=== PATIENT | female | born 1965 | race Caucasian/White ===

== ENCOUNTER 2020-05-30 16:14 | Emergency (ER) | payer BC, OTHER ==
--- NOTE | 2020-05-30 20:21 | ER ---
Nurse's Notes [facility] Name: Suzanne Horner Age: 54 yrs Sex: Female : 1965 Arrival Date: 05/30/2020 Time: 16:14 Bed 25 Private MD: Diagnosis: Palpitations;Headache Presentation: 05/30 16:32 Chief complaint: Patient states: "I've had a horrible headache and dizzy. I checked my ss BP and it was high. I was diagnosed and they put my on medicine that I started taking Saturday.". Coronavirus screen: Client denies travel out of the [place] in the last 14 days. Ebola Screen: Patient denies exposure to infectious person. Patient denies travel to an Ebola-affected area in the 21 days before illness onset. Initial Sepsis Screen: Does the patient meet any 2 criteria? No. Patient's initial sepsis screen is negative. Does the patient have a suspected source of infection? No. Patient's initial sepsis screen is negative. Risk Assessment: Do you want to hurt yourself or someone else? Patient reports no desire to harm self or others. Onset of symptoms is unknown. 16:32 Method Of Arrival: Ambulatory ss 16:32 Acuity: MEY 3 ss Historical: - Allergies: 16:36 PENICILLINS; ss - PMHx: 16:36 Hypertension; ss - Immunization history:: Adult Immunizations up to date. - Social history:: Smoking status: Patient reports the use of cigarette tobacco products, "E cig". Screenin/16 00:26 Abuse screen: Denies threats or abuse. Nutritional screening: No deficits noted. ll2 Tuberculosis screening: No symptoms or risk factors identified. Fall Risk None identified. Assessment: 05/30 22:00 General: Appears in no apparent distress. Behavior is calm, cooperative, appropriate ll2 for age. Pain: Denies pain. Neuro: Level of Consciousness is awake, alert, obeys commands, Oriented to person, place, time, situation. Cardiovascular: Patient's skin is warm and dry. Respiratory: Airway is patent Respiratory effort is even, unlabored, Respiratory pattern is regular, symmetrical. Derm: Skin is intact, is healthy with good turgor, Skin is pink, warm \\T\\ dry. Musculoskeletal: Circulation, motion, and sensation intact. Range of motion: intact in all extremities. 23:00 Reassessment: Patient and/or family updated on plan of care and expected duration. Pain ll2 level reassessed. Patient is alert, oriented x 3, equal unlabored respirations, skin warm/dry/pink. 05/31 00:00 Reassessment: Patient and/or family updated on plan of care and expected duration. Pain ll2 level reassessed. Patient is alert, oriented x 3, equal unlabored respirations, skin warm/dry/pink. Vital Signs: 05/30 16:32 BP 169 / 113; Pulse 95; Resp 15; Temp 98.1(TE); Pulse Ox 98% on R/A; Weight 77.11 kg; ss Height 5 ft. 7 in. (170.18 cm); Pain 4/10; 23:40 BP 168 / 105; Pulse 75; sg 05/31 00:00 BP 144 / 91; Pulse 72; Resp 16; Pulse Ox 98% on R/A; sg 05/30 16:32 Body Mass Index 26.63 (77.11 kg, 170.18 cm) ED Course: 05/30 16:14 Patient arrived in ED. rg4 16:36 Triage completed. ss 16:36 Arm band placed on right wrist. ss 21:33 Jackson Rosado MD is Attending Physician. kdr 21:45 Arelis Zepeda, SWATI is Primary Nurse. ll2 21:56 XRAY Chest (1 view) In Process Unspecified. EDMS 05/31 00:30 Patient has correct armband on for positive identification. Bed in low position. Call ll2 light in reach. Side rails up X 1. city plant supervisor on. Pulse ox on. NIBP on. 00:30 No provider procedures requiring assistance completed. IV discontinued, intact, ll2 bleeding controlled, No redness/swelling at site. Pressure dressing applied. Administered Medications: 05/30 22:00 Drug: Tylenol 1000 mg Route: PO; ll2 23:00 Follow up: Response: No adverse reaction ll2 23:48 Drug: Lopressor 5 mg Route: IVP; Site: left antecubital; 05/31 00:48 Follow up: Response: No adverse reaction ll2 Outcome: 05/30 20:20 Patient left the ED. em 05/31 00:33 Discharge ordered by . kdr 01:10 Patient left the ED. sg 01:10 Discharged to home ambulatory. ll2 01:10 Condition: stable 01:10 Discharge instructions given to patient, Instructed on discharge instructions, follow up and referral plans. medication usage, Demonstrated understanding of instructions, follow-up care, medications, Prescriptions given X 1. Signatures: Dispatcher [employer] Bridger Lange, RN Jackson De La Torre MD MD kdr Munoz, Edgar, RN RN em Smirch, Shelby, RN RN ss Garcia, Rubi [facility] Arelis Zepeda RN RN ll2
[2020-05-30 20:53] VITALS: TEMP 97.8
[2020-05-30] MEDS ORDERED: ACETAMINOPHEN 500 MG TAB ONE (22:30)
[2020-05-30 22:40] LABS: Absolute Lymphocytes (CBC) 1.6 K/uL (0.7-4.9); Basophils % 0.4 % (0-1.3); Hematocrit 38.2 % (36.0-45.0); Lymphocytes % 29.2 % (15.3-44.8); MPV 7.6 fL (7.6-11.3); RBC Red Blood Cell Count 3.88 M/uL (3.86-4.86)
[2020-05-30 22:41] LABS: Protime INR 0.96
[2020-05-30 23:11] LABS: ALT/SGPT 18 U/L (12-78); AST/SGOT 15 U/L (15-37); Albumin 3.7 g/dL (3.4-5.0); Alkaline Phosphatase 77 U/L (45-117); BUN Blood Urea Nitrogen 14 mg/dL (7-18); Bicarbonate 28 mmol/L (21-32); Bilirubin Direct 0.1 mg/dL (0-0.2); Bilirubin Total 0.4 mg/dL (0.2-1.0); Glucose Level 132 mg/dL (74-106); Magnesium 1.8 mg/dL (1.8-2.4); NT PRO-BNP 92 pg/mL (<125); Potassium 3.9 mmol/L (3.5-5.1); Protein, Total 7.1 g/dL (6.4-8.2); Sodium Level 141 mmol/L (136-145); T3 Free 3.94 pg/mL (2.18-3.98); Troponin (Emerg Dept Use Only) < 0.02 ng/mL (0.0-0.045)
[2020-05-31] MEDS ORDERED: METOPROLOL TARTRATE 5 MG/5 ML INJ IV ONE
--- NOTE | 2020-05-31 00:34 | EDPHYS ---
Physician Documentation [facility] Name: Suzanne Horner Age: 54 yrs Sex: Female : 1965 Arrival Date: 05/30/2020 Time: 16:14 Bed 25 Private MD: ED Physician Jackson Rosado HPI: 05/30 21:45 This 54 yrs old Female presents to ER via Ambulatory with complaints of kdr Headache and palpitations. 21:45 The patient has elevated blood pressure and discovered this at home. Onset: The kdr symptoms/episode began/occurred The patient c/o headache and palpitations. Has been intermittent and ongoing for about five days. Modifying factors: The symptoms are aggravated by Nothing, The symptoms are alleviated by Nothing. Associated signs and symptoms: Pertinent positives: headache, Palpitations. Severity of symptoms: At its worst the blood pressure was moderate, in the emergency department the blood pressure is unchanged. The patient has not experienced similar symptoms in the past. The patient has been recently seen by a physician: the patient's primary care provider, Dr. Antonio. Historical: - Allergies: 16:36 PENICILLINS; ss - PMHx: 16:36 Hypertension; ss - Immunization history:: Adult Immunizations up to date. - Social history:: Smoking status: Patient reports the use of cigarette tobacco products, "E cig". ROS: 21:45 Constitutional: Negative for fever, chills, and weight loss, Eyes: Negative for injury, kdr pain, redness, and discharge, Neck: Negative for injury, pain, and swelling, Respiratory: Negative for shortness of breath, cough, wheezing, and pleuritic chest pain, Abdomen/GI: Negative for abdominal pain, nausea, vomiting, diarrhea, and constipation, Back: Negative for injury and pain, : Negative for injury, bleeding, discharge, and swelling, MS/Extremity: Negative for injury and deformity, Skin: Negative for injury, rash, and discoloration, Psych: Negative for depression, anxiety, suicide ideation, homicidal ideation, and hallucinations, Allergy/Immunology: Negative for hives, rash, and allergies, Endocrine: Negative for neck swelling, polydipsia, polyuria, polyphagia, and marked weight changes, Hematologic/Lymphatic: Negative for swollen nodes, abnormal bleeding, and unusual bruising. 21:45 Cardiovascular: Positive for palpitations, Negative for chest pain, edema, orthopnea. 21:45 Neuro: Positive for headache, Negative for altered mental status, dizziness, hearing loss, loss of consciousness, speech changes, syncope, tinnitus, visual changes, weakness. Exam: 21:45 Constitutional: This is a well developed, well nourished patient who is awake, alert, kdr and in no acute distress. Head/Face: Normocephalic, atraumatic. Eyes: Pupils equal round and reactive to light, extra-ocular motions intact. Lids and lashes normal. Conjunctiva and sclera are non-icteric and not injected. Cornea within normal limits. Periorbital areas with no swelling, redness, or edema. Mild exopthalmosis Neck: Trachea midline, no thyromegaly or masses palpated, and no cervical lymphadenopathy. Supple, full range of motion without nuchal rigidity, or vertebral point tenderness. No Meningismus. Chest/axilla: Normal chest wall appearance and motion. Nontender with no deformity. No lesions are appreciated. Respiratory: Lungs have equal breath sounds bilaterally, clear to auscultation and percussion. No rales, rhonchi or wheezes noted. No increased work of breathing, no retractions or nasal flaring. Abdomen/GI: Soft, non-tender, with normal bowel sounds. No distension or tympany. No guarding or rebound. No evidence of tenderness throughout. Back: No spinal tenderness. No costovertebral tenderness. Full range of motion. Skin: Warm, dry with normal turgor. Normal color with no rashes, no lesions, and no evidence of cellulitis. MS/ Extremity: Pulses equal, no cyanosis. Neurovascular intact. Full, normal range of motion. Neuro: Awake and alert, GCS 15, oriented to person, place, time, and situation. Cranial nerves II-XII grossly intact. Motor strength 5/5 in all extremities. Sensory grossly intact. Cerebellar exam normal. Normal gait. Psych: Awake, alert, with orientation to person, place and time. Behavior, mood, and affect are within normal limits. 21:45 Cardiovascular: Rate: tachycardic, Rhythm: regular, Pulses: no pulse deficits are kdr appreciated. 05/31 06:30 ECG was reviewed by the Attending Physician. kdr Vital Signs: 05/30 16:32 BP 169 / 113; Pulse 95; Resp 15; Temp 98.1(TE); Pulse Ox 98% on R/A; Weight 77.11 kg; ss Height 5 ft. 7 in. (170.18 cm); Pain 4/10; 23:40 BP 168 / 105; Pulse 75; sg 05/31 00:00 BP 144 / 91; Pulse 72; Resp 16; Pulse Ox 98% on R/A; sg 05/30 16:32 Body Mass Index 26.63 (77.11 kg, 170.18 cm) ss MDM: 05/30 21:45 Data reviewed: vital signs, nurses notes, lab test result(s), EKG, radiologic studies. kdr Counseling: I had a detailed discussion with the patient and/or guardian regarding: the historical points, exam findings, and any diagnostic results supporting the discharge/admit diagnosis, lab results, radiology results. 21:51 Differential diagnosis: hypertensive crisis, Malignant HTN, intracerebral hemorrhage. kdr 05/31 00:33 Patient medically screened. kdr 00:37 Special discussion: Based on the patient's history, exam, and Dx evaluation, there is kdr no indication for emergent intervention or inpatient Tx. It is understood by the patient/guardian that if the Sx's persist or worsen they need to return immediately for re-evaluation. I discussed with the patient/guardian in detail that at this point there is no indication for admission to the hospital. It is understood, however, that if the symptoms persist or worsen the patient needs to return immediately for re-evaluation. ED course: The patient had significant improvement with the medications given. I discussed with her the need for further evaluation by her PCP or [employer] kindergarten teacher. 05/30 21:41 Order name: Basic Metabolic Panel kdr 05/30 21:41 Order name: CBC with Diff kdr 05/30 21:41 Order name: LFT's kdr 05/30 21:41 Order name: Magnesium kdr 05/30 21:41 Order name: NT PRO-BNP kdr 05/30 21:41 Order name: PT-INR; Complete Time: 23:19 kdr 05/30 21:41 Order name: Troponin (emerg Dept Use Only); Complete Time: 23:19 kdr 05/30 21:41 Order name: TSH; Complete Time: 23:19 kdr 05/30 21:41 Order name: T3 Free; Complete Time: 23:19 kdr 05/30 21:41 Order name: T4 Free; Complete Time: 23:19 [facility] 05/30 21:42 Order name: Basic Metabolic Panel; Complete Time: 23:19 EDMS 05/30 21:42 Order name: CBC with Automated Diff; Complete Time: 23:19 EDMS 05/30 21:42 Order name: Liver (Hepatic) Function; Complete Time: 23:19 EDMS 05/30 21:42 Order name: Magnesium; Complete Time: 23:19 EDMS 05/30 21:41 Order name: XRAY Chest (1 view) kdr 05/30 21:41 Order name: EKG; Complete Time: 21:42 [facility] 05/30 21:41 Order name: Cardiac monitoring [facility] 05/30 21:41 Order name: EKG - Nurse/Tech kdr 05/30 21:41 Order name: IV Saline Lock [facility] 05/30 21:41 Order name: Labs collected and sent [facility] 05/30 21:41 Order name: O2 Per Protocol [facility] 05/30 21:41 Order name: O2 Sat Monitoring [facility] 05/30 21:42 Order name: NT PRO-BNP; Complete Time: 23:19 EDMS EC:30 Rate is 81 beats/min. Rhythm is regular, Sinus Rhythm with No ectopy. QRS [place] is kdr Normal. NC interval is normal. QRS interval is normal. QT interval is normal. Clinical impression: NSR w/ Non-specific ST/T Changes. Administered Medications: 05/30 22:00 Drug: Tylenol 1000 mg Route: PO; ll2 23:00 Follow up: Response: No adverse reaction ll2 23:48 Drug: Lopressor 5 mg Route: IVP; Site: left antecubital; 05/31 00:48 Follow up: Response: No adverse reaction ll2 Disposition: 05/31/20 00:33 Discharged to Home. Impression: Palpitations, Headache. - Condition is Stable. - Discharge Instructions: Hypertension, Palpitations, [id number], General Headache Without Cause, [id number]. - Prescriptions for Metoprolol Tartrate 25 mg Oral Tablet - take 1 tablet by ORAL route 2 times per day with a meal; 20 tablet. - Medication Reconciliation Form, Thank You Letter form. - Follow up: Private Physician; When: 2 - 3 days; Reason: If symptoms return, Further diagnostic work-up, Recheck today's complaints, Continuance of care, Re-evaluation by your physician. - Problem is new. - Symptoms have improved. Signatures: Dispatcher [employer] EDBridger Fermin, RN RN sg Jackson Rosado MD MD [facility] Jose Howard, RN RN em Seda Gomes RN RN Arelis Zepeda RN RN ll2 Corrections: (The following items were deleted from the chart) 05/30 20:20 20:20 05/30/2020 20:20 Patient left the facility before being seen by provider. Reason em stated they are leaving due to unknown. em 21:01 20:20 05/30/2020 20:20 Patient left the facility before being seen by provider. Reason sg stated they are leaving due to unknown. em 05/31 01:10 00:33 05/31/2020 00:33 Discharged to Home. Impression: Palpitations; Headache. sg Condition is Stable. Forms are Medication Reconciliation Form, Thank You Letter, Antibiotic Education, Prescription Opioid Use. Follow up: Private Physician; When: 2 - 3 days; Reason: If symptoms return, Further diagnostic work-up, Recheck today's complaints, Continuance of care, Re-evaluation by your physician. Problem is new. Symptoms have improved. kdr
[2020-05-31 01:15] VITALS: BP 144/91; O2SAT 98
--- NOTE | 2020-05-31 07:55 | RAD REPORT ---
EXAM DESCRIPTION: RAD - Chest Single View - 05/30/2020 9:56 pm CLINICAL HISTORY: PALPITATIONS COMPARISON: Two view chest December 2011 TECHNIQUE: AP portable chest image was obtained 05/30/2020 9:56 pm . FINDINGS: Lungs are clear. Heart and vasculature are normal. No measurable pleural effusion and no p neumothorax. No acute bony abnormality seen. No acute aortic findings suspected. IMPRESSION: No acute cardiopulmonary process. No significant change from comparison study.
--- NOTE | 2020-05-31 09:59 | EKG ---
Test Date: 2020-05-30 Test Time: 22:28:31 Consulting Technical Director: SHANON MEASUREMENT RESULTS: Intervals: Rate: 81 OH: 168 QRSD: 100 QT: 408 QTc: 473 [place]: P: 41 OH: 168 QRS: 16 T: 39 INTERPRETIVE STATEMENTS: Poor data quality, interpretation may be adversely affected Normal sinus rhythm Cannot rule out Anterior infarct, age undetermined Abnormal ECG Compared to ECG 12/20/2017 11:07:24 No significant changes Electronically Signed On 05-31-20 09:59:25 HOUSE FELLOW by Biju Gregory
== END 2020-05-31 01:10 | disposition home or self-care (01) ==
LOC: ER 16:14
DX: R00.2 Palpitations (principal); R51.9 Headache, unspecified; I10 Essential (primary) hypertension; F17.290 Nicotine dependence, other tobacco product, uncomplicated
CPT/HCPCS: 36415; 71045; 80048; 80076; 83735; 83880; 84439; 84443; 84481; 84484; 85025; 85610; 93005; 96374; 99284